=== PATIENT | female | born 1960 | race Caucasian/White ===

== ENCOUNTER 2023-06-15 07:57 | Outpatient (CLI) | payer OTHER ==
[2023-06-15] MEDS ORDERED: Iopamidol 370 76% 100 ML VIAL ONE (08:40)
== END 2023-06-15 07:58 | disposition home or self-care (01) ==
LOC: CSHCP 07:57
PROVIDERS: ATTEND Internal Medicine Critical Care Medicine
DX: M54.12 Radiculopathy, cervical region (principal); R91.8 Other nonspecific abnormal finding of lung field; J43.9 Emphysema, unspecified; J98.4 Other disorders of lung; Z98.1 Arthrodesis status
CPT/HCPCS: 71260; 72040; 82565; 94060; 94664; 94726; 94729; 94760; Q9967

== ENCOUNTER 2023-07-21 07:24 | Day surgery (SDC) | payer OTHER ==
[2023-07-19 14:02] VITALS: BMI 16.9
[2023-07-21] MEDS ORDERED: PROPOFOL 40 ML ONE (08:43)
[2023-07-21] MEDS ORDERED: fentaNYL 50 mcg/mL 1 mL Vial ONE (08:45)
== END 2023-07-21 10:05 | disposition home or self-care (01) ==
LOC: CSHSDC 07:24
PROVIDERS: ATTEND Internal Medicine Gastroenterology
PROC: 0DJD8ZZ Inspection of Lower Intestinal Tract, Via Natural or Artificial Opening Endoscopic (ICD-10-PCS; principal; 2023-07-21)
PROC: 0DB68ZX Excision of Stomach, Via Natural or Artificial Opening Endoscopic, Diagnostic (ICD-10-PCS; principal; 2023-07-21)
DX: K29.40 Chronic atrophic gastritis without bleeding (principal); K29.80 Duodenitis without bleeding; K26.9 Duodenal ulcer, unspecified as acute or chronic, without hemorrhage or perforation; K31.89 Other diseases of stomach and duodenum; K64.8 Other hemorrhoids; K57.30 Diverticulosis of large intestine without perforation or abscess without bleeding; K21.9 Gastro-esophageal reflux disease without esophagitis; J44.9 Chronic obstructive pulmonary disease, unspecified; F32.A Depression, unspecified; I10 Essential (primary) hypertension; F17.200 Nicotine dependence, unspecified, uncomplicated; Z90.49 Acquired absence of other specified parts of digestive tract; Z79.899 Other long term (current) drug therapy; Z79.52 Long term (current) use of systemic steroids; Z80.0 Family history of malignant neoplasm of digestive organs
CPT/HCPCS: 88305; J2704; J3010